=== PATIENT | female | born 1995 | race Caucasian/White ===

== ENCOUNTER 2017-06-29 23:03 | Emergency (ER) | payer OTHER ==
[~2017-06-29] VITALS: Ht 152.4 cm; Wt 72.7 kg
[2017-06-29 23:05] VITALS: BP 116/74; TEMP 98.2
[2017-06-30 00:04] LABS: INFLUENZA A NEGATIVE; INFLUENZA B NEGATIVE
[2017-06-30] MEDS ORDERED: TESSALON P100 MG/CAP PO (00:15)
[2017-06-30 00:36] VITALS: PULSE 72
== END 2017-06-30 00:37 | disposition home or self-care (01) ==
LOC: COL.ER 23:03
PROVIDERS: Physician Assistant
DX: B34.9 Viral infection, unspecified (principal); F32.9 Major depressive disorder, single episode, unspecified; F41.9 Anxiety disorder, unspecified

== ENCOUNTER 2017-11-07 17:28 | Emergency (ER) | payer OTHER ==
[~2017-11-07] VITALS: Ht 152.4 cm; Wt 88.2 kg
[~2017-11-07 17:28] MED LIST: TESSALON P100 MG/CAP PO
[2017-11-07 17:36] VITALS: BP 124/77; TEMP 100
[2017-11-07 17:52] LABS: COLLECTION METHOD CLEAN CATCH
[2017-11-07 18:04] LABS: MUCOUS Present /lpf; PH 5 (5-8); SQUAMOUS EPITHELIAL 0-2 /hpf; URINE APPEARANCE Clear; URINE BACTERIA None Seen /hpf; URINE BILIRUBIN Negative (NEGATIVE); URINE BLOOD Negative (NEGATIVE); URINE COLOR Yellow; URINE GLUCOSE Negative (NEGATIVE); URINE KETONE Negative (NEGATIVE); URINE LEUKOCYTE ESTERASE Negative (NEGATIVE); URINE NITRATE Negative (NEGATIVE); URINE PROTEIN(semi-quant) Negative (NEGATIVE); URINE RBC 0-2 /hpf; URINE UROBILINOGEN Negative (NEGATIVE)
[2017-11-07 20:10] VITALS: PULSE 75
== END 2017-11-07 20:10 | disposition home or self-care (01) ==
LOC: COL.ER 17:28
PROVIDERS: Nurse Practitioner
DX: O99.89 Other specified diseases and conditions complicating pregnancy, childbirth and the puerperium (principal); R10.2 Pelvic and perineal pain; Z3A.08 8 weeks gestation of pregnancy

== ENCOUNTER → 2017-12-28 | Outpatient (CLI) | payer OTHER | LOC: COL.LAB 16:59 | DX: O28.8 Other abnormal findings on antenatal screening of mother (principal); R76.8 Other specified abnormal immunological findings in serum ==

== ENCOUNTER 2018-03-20 18:49 | Emergency (ER) | payer OTHER ==
[2018-03-20 18:54] VITALS: BP 134/73; TEMP 98.5
[2018-03-20 19:52] LABS: BASO % 0.2 % (0.0-2.0); EOS # 0.3 (0.0-0.7); EOS % 2.5 % (0-4.0); GRAN # 9.1 (1.4-6.5); GRAN % 76.1 % (42.2-75.2); HEMOGLOBIN 11.7 g/dl (12.0-15.0); LYMPH # 1.9 (1.2-3.4); LYMPH % 15.6 % (20.0-51.0); MEAN CELL VOLUME 87 fl (80.0-95.0); MEAN CORPUSCULAR HEMOGLOBIN 31 pg (26.0-32.0); MEAN CORPUSCULAR HGB CONC 35 g/dl (33.0-37.0); MEAN PLATELET VOLUME 10.1 fl (7.4-10.4); MONO # 0.6 (0.1-0.6); PLATELET COUNT 217 K/mm3 (130-400); RED BLOOD COUNT 3.84 M/mm3 (4.10-5.30)
[2018-03-20 19:54] LABS: HEMATOCRIT 33.5 % (35.0-45.0)
[2018-03-20 20:04] LABS: ALBUMIN 3.6 gm/dL (3.5-5.0); BILIRUBIN,TOTAL 0.2 mg/dL (0.0-1.0); CALCIUM 9.6 mg/dL (8.4-10.2); CREATININE, serum 0.44 mg/dL (0.52-1.25); POTASSIUM 3.6 mmol/L (3.4-5.0); TOTAL PROTEIN 6.9 gm/dL (6.4-8.2)
[2018-03-20 21:29] LABS: COLLECTION METHOD CLEAN CATCH
[2018-03-20 21:39] LABS: AMORPHOUS CRYSTAL Present /uL; MUCOUS Present /lpf; PH 6 (5-8); URINE APPEARANCE Hazy; URINE BACTERIA Rare /hpf; URINE BILIRUBIN Negative (NEGATIVE); URINE BLOOD Negative (NEGATIVE); URINE COLOR Yellow; URINE GLUCOSE Negative (NEGATIVE); URINE KETONE Negative (NEGATIVE); URINE LEUKOCYTE ESTERASE Negative (NEGATIVE); URINE NITRATE Negative (NEGATIVE); URINE PROTEIN(semi-quant) Negative (NEGATIVE); URINE RBC 0-2 /hpf; URINE UROBILINOGEN Negative (NEGATIVE)
[2018-03-20] MEDS ORDERED: CEPHALEXIN500 M1 PO (22:37)
[2018-03-20 22:49] VITALS: PULSE 74
== END 2018-03-20 22:49 | disposition home or self-care (01) ==
LOC: COL.ER 18:49
PROVIDERS: Emergency Medicine
DX: O99.512 Diseases of the respiratory system complicating pregnancy, second trimester (principal); J06.9 Acute upper respiratory infection, unspecified; O23.92 Unspecified genitourinary tract infection in pregnancy, second trimester; R82.71 Bacteriuria; Z3A.25 25 weeks gestation of pregnancy

== ENCOUNTER 2018-06-19 15:58 | Outpatient (CLI) | payer OTHER ==
[~2018-06-19] VITALS: Ht 152.4 cm; Wt 98.2 kg
[~2018-06-19 15:58] MED LIST changes: +CEPHALEXIN500 M1 PO
--- NOTE | 2018-06-19 16:15 | NUR ---
Patient ambulatory to LR5, changed into gown, and FHR/TOCO monitors placed and explained. Patient states she has felt like she is peeing her pants a little bit and somewhat has continued, denies vagnial bleeding, and only feeling random normal contractions. SVE- closed/thick/high per A.Murrow and amniotest negative and no fluid present. 1635: called and notified. 1645: Patient off the monitors and given discharge instructions. 1655: Ambulatory off unit with spouse.
[2018-06-19] MEDS ORDERED: PRENATAL MVI (16:35)
[2018-06-19] MEDS ORDERED: ZYRTEC 10MG10 MG PO (16:36)
[2018-06-19 16:45] VITALS: BP 122/73; PULSE 76; TEMP 98.5
== END 2018-06-19 16:55 ==
LOC: LDRO 15:58
DX: Z34.93 Encounter for supervision of normal pregnancy, unspecified, third trimester (principal); Z3A.37 37 weeks gestation of pregnancy

== ENCOUNTER 2018-07-02 14:34 | Inpatient (IN) | payer OTHER ==
[2018-07-02] VITALS (8 sets, daily range): BP systolic 120–150; BP diastolic 66–80; PULSE 73–92; TEMP 98.3
[~2018-07-02] VITALS: Ht 154.9 cm; Wt 99.5 kg
[~2018-07-02 14:34] MED LIST changes: +PRENATAL MVI; +ZYRTEC 10MG10 MG PO
--- NOTE | 2018-07-02 19:00 | NUR ---
Pt arrived on unit for scheduled induction escorted by her . Pt denies any vaginal leaking of fluid or bleeding, reports normal movement and reports occasional contractions but no pain or discomfort with them. EFM and toco monitors started. Vital signs WNL. Consents signed. IV started and labs obtained. Plan of care for induction reviewed with pt and . Both verbalized an understanding, agree with the plan and state no questions or concerns at this time.
[2018-07-02 20:33] LABS: BASO % 0.3 % (0.0-2.0); EOS # 0.1 (0.0-0.7); EOS % 1.1 % (0-4.0); GRAN # 8.7 (1.4-6.5); GRAN % 74.3 % (42.2-75.2); LYMPH # 2.1 (1.2-3.4); LYMPH % 17.8 % (20.0-51.0); MEAN CELL VOLUME 87 fl (80.0-100.0); MEAN CORPUSCULAR HEMOGLOBIN 30 pg (27.0-31.0); MEAN CORPUSCULAR HGB CONC 34 g/dl (33.0-37.0); MEAN PLATELET VOLUME 11.3 fl (7.4-10.4); MONO # 0.6 (0.1-0.6); MONO % 5.4 % (1.7-9.3); PLATELET COUNT 236 K/mm3 (130-400); RED BLOOD COUNT 4.05 M/mm3 (4.10-5.30); REDCELL DISTRIBUTION WIDTH-CV 13.1 % (11.5-14.5)
[2018-07-02 20:34] LABS: HEMATOCRIT 35.3 % (37.0-47.0)
--- NOTE | 2018-07-02 21:40 | NUR ---
SVE by this RN /-3. Contractions tracing every 3-5 minutes via toco. Pt reports feeling a couple of them but denies pain and contractions palpate mild. Cervidil placed per order. See EMAR for details. Plan of care reviewed with pt and at the bedside. Call light within reach.
--- NOTE | 2018-07-02 23:40 | NUR ---
Pt off EFM and toco per order. Plan of care reviewed. Will continue to monitor.
[2018-07-03] VITALS (66 sets, daily range): BP systolic 91–139; BP diastolic 40–91; PULSE 61–110; TEMP 98–99.6
--- NOTE | 2018-07-03 06:00 | NUR ---
Cervidil removed at [address] Chahal's order. SVE by this RN /. Plan of care reviewed with pt.
--- NOTE | 2018-07-03 07:00 | NUR ---
0620- RN at bedside for introductions. Pt resting with lights off. Plan of care explained, going to start Pitocin around 0700. Pt may take a quick shower and have a light breakfast if desires. Pt wants to do both. 0630- Pt up to shower. [place] prepared for Pt by this RN. 0648- Pt into bed, EFM and TOCO on and tracing. Pt states she feels tighteness with UCs but denies pain. movement heard by this RN on monitor.
--- NOTE | 2018-07-03 07:30 | NUR ---
0703- Pt assisted to LL. 0705- IVF bolus initated. VSS. 0728- FHR reactive, Pitocin started per protocol, Pt questions answered.
--- NOTE | 2018-07-03 09:15 | NUR ---
0905- MD on unit. Updated on current status. 0910- and this RN to bedside. SVE by MD, -/3. AROM, clear fluid noted, no odor. Precautions given, Pt verbalizes understanding. MD informs Pt of Plan of Care, Pt deneis questions at this time.
--- NOTE | 2018-07-03 12:33 | NUR ---
1222- FREDDY Mendoza at bedside for epidural. Pt asssited to sitting on side of bed. 1226- O2 sat monitor on and tracing. FHR difficult to monitor due to maternal position. 1233- Single shot by [employer] PROFESSIONAL, see anesthesia record. 1235- O2 sat monitor off. Pt assisted to semi-fowlers with WR. 1238- EFM and TOCO adjusted and tracing well. Pt states she feels cramping on left side. Pt assisted to WL. Tolerated well.
--- NOTE | 2018-07-03 13:50 | NUR ---
1350- Pt repositioned self to LL, TOCO not tracing UCs well, adjuested.
--- NOTE | 2018-07-03 15:45 | NUR ---
1537- Pt assisted to high fowlers position due to inability to monitor UCs well. EFM and TOCO adjusted. Pt tolerated well.
--- NOTE | 2018-07-03 16:15 | NUR ---
1607- Dr Chahal at bedside, SVE /-2. Discussed plan of care, questions answered. VO given to increase Pitocin above 30mu if needed with max of 40mu.
--- NOTE | 2018-07-03 17:00 | NUR ---
1630- FHR variabls noted after each UC. Pt assisted to WL. 1650- FHR late decels noted, return to baseline prior to end of UC, moderate variability noted throughout. Pt repositioned to RL, IVF bolus. 165- SVE by this RN, /-2. FHR Variables noted with moderate variability. 1703- Pt repositioned to LL. Pitocin off. 1715- Dr Chahal called and updated. See physician notification.
--- NOTE | 2018-07-03 18:00 | NUR ---
1750- Strip reviewed by charge nurse, KANWAL Silva at nurses station. Dr Tamez at nurses station, reveiws strip and gives go ahead on restarting Pitocin per Dr Chahal order.
--- NOTE | 2018-07-03 18:32 | NUR ---
at bedside. SVE /-3. Discussion on explained to pt and per provider. Will recheck pt in one hour and go from there. Pt repositioned to right lateral position. Plan of care explained to pt and . Questions answered.
--- NOTE | 2018-07-03 19:20 | NUR ---
at bedside. SVE unchanged. 1920: Decision for at this time. Education on procedure given to pt and per provider. Questions answered. Temp 99.6 orally. at bedside and notified. Pitocin off and abdomen prepped. 1924: Pt sitting up in bed. FHR tracing maternal pulse. RN at bedside and adjusting monitors. 1929: Pt states she feels like she is going to throw up. Zofran 4mg administered and Reji ME[employer] ASSOCIATE notified. 1933: Pt off monitors and wheeled back to OR via bed. at pts bedside.
[2018-07-04] VITALS: BP 114/59; PULSE 95; TEMP 99.1
--- NOTE | 2018-07-04 00:20 | NUR ---
Pt wanting to observe infants first bath. Pt able to hold legs up bilateratlly for 5 seconds. Fundus firm, midline and bleeding minimal. Pericare provided and abdomen binder applied. Pt assisted to edge of bed. Epidural catheter removed without difficulty. No signs of inflammation or infection noted.Pt denies dizziness or lightheadedness. Pt assisted to wheelchair, two person assist and wheeled into nursery.
[2018-07-04 01:05] VITALS: BP 113/55; PULSE 98; TEMP 99.1
[2018-07-04 04:30] VITALS: BP 106/57; PULSE 84; TEMP 98.3
[2018-07-04 08:00] VITALS: BP 106/45; PULSE 95; TEMP 99
--- NOTE | 2018-07-04 08:56 | NUR ---
Initial visit; Parents thanked Brass Plater for offering congratulations and God's blessings for the of their daughter and for thanking them for choosing [facility].
[2018-07-04] MEDS ORDERED: IBU600 MG PO (08:57)
[2018-07-04] MEDS ORDERED: PERCOCET 325 MG1 TA2 PO (08:58)
[2018-07-04 16:20] VITALS: BP 112/58; PULSE 99; TEMP 98.3
[2018-07-04 20:10] VITALS: BP 118/67; PULSE 99; TEMP 98.2
[2018-07-05 08:26] VITALS: BP 118/77; PULSE 88; TEMP 97.8
== END 2018-07-05 15:55 | disposition home or self-care (01) | DRG 788 ==
LOC: LDR 14:34 → OB 18:55 → LDR 18:55 → OB 07-03 22:48
PROVIDERS: ADMIT Obstetrics & Gynecology
PROC: 3E033VJ Introduction of Other Hormone into Peripheral Vein, Percutaneous Approach (ICD-10-PCS; 2018-07-02)
PROC: 3E0P7VZ Introduction of Hormone into Female Reproductive, Via Natural or Artificial Opening (ICD-10-PCS; 2018-07-02)
PROC: 10907ZC Drainage of Amniotic Fluid, Therapeutic from Products of Conception, Via Natural or Artificial Opening (ICD-10-PCS; 2018-07-02)
PROC: 10D00Z1 Extraction of Products of Conception, Low, Open Approach (ICD-10-PCS; principal; 2018-07-03)
DX: O13.4 Gestational [pregnancy-induced] hypertension without significant proteinuria, complicating childbirth (principal); Z3A.38 38 weeks gestation of pregnancy; Z37.0 Single live birth; O62.1 Secondary uterine inertia; O99.344 Other mental disorders complicating childbirth; F41.8 Other specified anxiety disorders; O76 Abnormality in fetal heart rate and rhythm complicating labor and delivery; O99.214 Obesity complicating childbirth
CPT/HCPCS: J0690; J1885; J2175; J2370; J2405; J2590; J2795; J7120

== ENCOUNTER → 2018-09-13 | Outpatient (CLI) | payer OTHER ==
[~2018-09-13] MED LIST changes: +IBU600 MG PO; +PERCOCET 325 MG1 TA2 PO
== END ==
LOC: ZCOL.LAB 16:22
DX: J02.9 Acute pharyngitis, unspecified (principal)

== ENCOUNTER 2019-12-06 02:12 | Emergency (ER) | payer OTHER ==
[~2019-12-06] VITALS: Ht 152.4 cm; Wt 83.6 kg
[2019-12-06 02:17] VITALS: BP 109/64; TEMP 97.7
[2019-12-06] MEDS ORDERED: ZOFRAN ODT4 MG SL (03:53)
[2019-12-06 04:00] LABS: COLLECTION METHOD CLEAN CATCH
[2019-12-06 04:15] LABS: MUCOUS Present /lpf; PH 5 (5-8); URINE APPEARANCE Hazy; URINE BACTERIA Rare /hpf; URINE BILIRUBIN Negative (NEGATIVE); URINE BLOOD 1+ (NEGATIVE); URINE COLOR Yellow; URINE GLUCOSE Negative (NEGATIVE); URINE KETONE 1+ (NEGATIVE); URINE LEUKOCYTE ESTERASE Negative (NEGATIVE); URINE NITRATE Negative (NEGATIVE); URINE PROTEIN(semi-quant) 1+ (NEGATIVE); URINE UROBILINOGEN Negative (NEGATIVE)
[2019-12-06 04:30] VITALS: PULSE 76
== END 2019-12-06 04:30 | disposition home or self-care (01) ==
LOC: COL.ER 02:12
PROVIDERS: Emergency Medicine
DX: O26.891 Other specified pregnancy related conditions, first trimester (principal); R10.2 Pelvic and perineal pain; Z3A.12 12 weeks gestation of pregnancy

== ENCOUNTER 2020-04-07 22:56 | Outpatient (CLI) | payer OTHER ==
[~2020-04-07] VITALS: Ht 152.4 cm; Wt 86.8 kg
[~2020-04-07 22:56] MED LIST changes: +ZOFRAN ODT4 MG SL
[2020-04-07 23:07] VITALS: BP 112/60; PULSE 71; TEMP 98.7
--- NOTE | 2020-04-07 23:40 | NUR ---
2315 G3L1 at 30 weeks gestation to LDR2 with c/o decreased movement. Patient changed into gown and wedged to left side in bed. EFMs explained and applied. FHR 135 bpm and reactive. No CTX per toco or patient reports. VSS. Audible movement heard on EFM by this nurse and patient and patient states "there he goes" as baby moves. Patient expresses reassurance. Plan of care reviewed.
--- NOTE | 2020-04-07 23:45 | NUR ---
Discharge instructions reviewed. Patient discharged home.
== END 2020-04-07 23:50 | disposition home or self-care (01) ==
LOC: LDRO 22:56
DX: O36.8130 Decreased fetal movements, third trimester, not applicable or unspecified (principal); Z3A.30 30 weeks gestation of pregnancy

== ENCOUNTER 2020-06-01 17:55 | Outpatient (CLI) | payer OTHER ==
[~2020-06-01] VITALS: Ht 152.4 cm; Wt 92.7 kg
--- NOTE | 2020-06-01 18:20 | NUR ---
G3L1 at 37 weeks and 6 days arrives to unit ambulatory with complaint of migraine with nausea/vomiting, blurry vision, and tingling in hand. Pt reports she had PIH with her last and had high blood pressure and swelling. Does not report swelling today. Pt states she took tylenol and zofran prior to coming to the hospital. Hasn't had much appetite today. Reports good movement, denies vaginal bleeding, loss of fluid, or contractions. Clean gown on. Oriented to room, bed in low and locked position, call light within reach. US and toco explained and applied. Plan of care reviewed with patient. Admission assessment started. Vital signs obtained and within normal limits.
[2020-06-01 18:30] VITALS: BP 120/77; PULSE 74; TEMP 98.6
--- NOTE | 2020-06-01 18:30 | NUR ---
Pt appears to be magui every 2-3 minutes on monitor , pt unaware of contractions. SVE closed/thick/high
[2020-06-01 18:50] VITALS: BP 122/74; PULSE 69
--- NOTE | 2020-06-01 18:50 | NUR ---
Category 1 FHR tracing obtained. Vital signs remain within normal limits. Pt appears to be in no acute distress. Telephone orders from Dr. Thorpe ok to discharge home at this time, pt agreeable to discharge plan. Monitors off. Encouraged patient to stay well hydrated and rest. Has visit in the office tomorrow. 1904 discharge instructions reviewed, pt verbalized understanding. Pt walked out by this RN.
[2020-06-01] MEDS ORDERED: TYLENOL 500MG500 MG PO (18:55)
== END 2020-06-01 19:05 | disposition home or self-care (01) ==
LOC: LDRO 17:55
DX: O26.891 Other specified pregnancy related conditions, first trimester (principal); H53.8 Other visual disturbances; R11.2 Nausea with vomiting, unspecified; R20.0 Anesthesia of skin; R10.11 Right upper quadrant pain; Z3A.37 37 weeks gestation of pregnancy

== ENCOUNTER → 2020-06-04 | Outpatient (CLI) | payer OTHER ==
[~2020-06-04] MED LIST changes: +TYLENOL 500MG500 MG PO
== END ==
LOC: ZCOL.LAB 08:00
DX: Z20.828 Contact with and (suspected) exposure to other viral communicable diseases (principal)

== ENCOUNTER 2020-06-09 06:57 | Inpatient (IN) | payer OTHER ==
[~2020-06-09] VITALS: Ht 152.5 cm; Wt 93.6 kg
[2020-06-09] VITALS (21 sets, daily range): BP systolic 100–125; BP diastolic 43–87; PULSE 60–97; TEMP 97.7–98.9
--- NOTE | 2020-06-09 07:03 | NUR ---
0703-Patient and spouse ambulatory to213 for scheduled repeat c/s. Assisted on to EFM. Assessment complete. IV to right hand, blood collected and sent to lab per orders. LR infusing see EMAR. Mons clipped per protocol and abdomened washed.
[2020-06-09 07:52] LABS: BASO % 0.2 % (0.0-2.0); EOS # 0.1 (0.0-0.7); GRAN # 8.6 (1.4-6.5); GRAN % 68.4 % (42.2-75.2); HEMOGLOBIN 12.1 g/dl (12.5-16.0); LYMPH # 2.9 (1.2-3.4); LYMPH % 23.6 % (20.0-51.0); MEAN CELL VOLUME 88 fl (80.0-100.0); MEAN CORPUSCULAR HEMOGLOBIN 30 pg (27.0-31.0); MEAN CORPUSCULAR HGB CONC 35 g/dl (33.0-37.0); MEAN PLATELET VOLUME 10.5 fl (7.4-10.4); MONO # 0.7 (0.1-0.6); MONO % 5.8 % (1.7-9.3); PLATELET COUNT 211 K/mm3 (130-400); RED BLOOD COUNT 3.99 M/mm3 (4.10-5.30); REDCELL DISTRIBUTION WIDTH-CV 13.2 % (11.5-14.5)
[2020-06-09 07:55] LABS: HEMATOCRIT 34.9 % (37.0-47.0)
--- NOTE | 2020-06-09 09:55 | NUR ---
0955-Patient to PACU via bed. A&Ox4. Recieved report from FREDDY Mendoza. VSS see flow record. Perry to DD, clear yellow urine. IVF to R hand. Denies pain. Fundal massage firm. [facility] D[facility] C/D/I. Updated on plan of care and safety. Roles in to see patient. Infant brought in with father and nursery RN.
[2020-06-10 01:30] VITALS: BP 110/63; PULSE 78; TEMP 97.9
[2020-06-10 06:05] LABS: HEMATOCRIT 32.3 % (37.0-47.0); HEMOGLOBIN 10.9 g/dl (12.5-16.0)
--- NOTE | 2020-06-10 07:00 | NUR ---
REPORT RECEIVED FROM OFF GOING RN, ASHLEE Steele CARE TAKEN OVER BY THIS RN.
[2020-06-10 07:29] VITALS: BP 112/68; PULSE 88; TEMP 98.3
[2020-06-10] MEDS ORDERED: IBU600 MG PO (08:58)
[2020-06-10] MEDS ORDERED: PERCOCET 325 MG1 TA2 PO (08:59)
--- NOTE | 2020-06-10 09:43 | NUR ---
Initial visit; Parents thanked Degree Clerk for offering congratulations and God's blessings for their son. Degree Clerk thanked family for choosing [facility].
== END 2020-06-10 14:00 | disposition home or self-care (01) | DRG 787 ==
LOC: OB 06:57
PROVIDERS: ADMIT Obstetrics & Gynecology
PROC: 10D00Z1 Extraction of Products of Conception, Low, Open Approach (ICD-10-PCS; principal; 2020-06-09)
DX: O34.211 Maternal care for low transverse scar from previous cesarean delivery (principal); O99.354 Diseases of the nervous system complicating childbirth; Z37.0 Single live birth; O99.344 Other mental disorders complicating childbirth; F32.9 Major depressive disorder, single episode, unspecified; F41.9 Anxiety disorder, unspecified; G43.909 Migraine, unspecified, not intractable, without status migrainosus; Z3A.39 39 weeks gestation of pregnancy
CPT/HCPCS: J0690; J2175; J2370; J2405; J2590; J7120

== ENCOUNTER 2020-12-10 10:59 | Emergency (ER) | payer OTHER ==
[~2020-12-10] VITALS: Ht 152.4 cm; Wt 79.5 kg
[2020-12-10 11:20] VITALS: TEMP 98.9
[2020-12-10 12:41] VITALS: BP 118/65; PULSE 91
== END 2020-12-10 12:41 | disposition home or self-care (01) ==
LOC: COL.ER 10:59
DX: B34.9 Viral infection, unspecified (principal); Z20.822 Contact with and (suspected) exposure to COVID-19

== ENCOUNTER 2021-01-24 20:18 | Emergency (ER) | payer OTHER ==
[~2021-01-24] VITALS: Ht 152.4 cm; Wt 76.8 kg
[2021-01-24 20:22] VITALS: TEMP 99.2
[2021-01-24] MEDS ORDERED: CEPHALEXIN500 M1 PO (21:25)
[2021-01-24 21:46] VITALS: BP 128/70; PULSE 73
== END 2021-01-24 21:48 | disposition home or self-care (01) ==
LOC: COL.ER 20:18
DX: N61.0 Mastitis without abscess (principal); N60.42 Mammary duct ectasia of left breast

== ENCOUNTER 2021-06-27 10:31 | Observation (INO) | payer OTHER ==
[2021-06-27] VITALS (8 sets, daily range): BP systolic 99–119; BP diastolic 49–73; PULSE 81–93; TEMP 98
[~2021-06-27] VITALS: Ht 154.9 cm; Wt 77.0 kg
[2021-06-27 11:52] LABS: BASO % 0.2 % (0.0-2.0); EOS # 0.1 K/mm3 (0.0-0.7); EOS % 0.7 % (0.0-4.0); GRAN # 8.8 K/mm3 (1.4-6.5); GRAN % 86.6 % (42.2-75.2); HEMATOCRIT 39.2 % (37.0-47.0); HEMOGLOBIN 13.4 g/dl (12.5-16.0); LYMPH # 0.6 K/mm3 (1.2-3.4); LYMPH % 6.1 % (20.0-51.0); MEAN CELL VOLUME 88 fl (80.0-100.0); MEAN CORPUSCULAR HEMOGLOBIN 30 pg (27-31); MEAN CORPUSCULAR HGB CONC 34 g/dl (33.0-37.0); MEAN PLATELET VOLUME 9.5 fl (7.4-10.4); MONO # 0.6 K/mm3 (0.1-0.6); PLATELET COUNT 248 K/mm3 (130-400); RED BLOOD COUNT 4.46 M/mm3 (4.10-5.30); REDCELL DISTRIBUTION WIDTH-CV 11.9 % (11.5-14.5)
[2021-06-27 12:13] LABS: ALBUMIN 4.1 gm/dL (3.5-5.0); BILIRUBIN,TOTAL 0.9 mg/dL (0.2-1.2); CALCIUM 8.7 mg/dL (8.4-10.2); CREATININE, serum 0.65 mg/dL (0.57-1.11); POTASSIUM 3.8 mmol/L (3.5-4.5); TOTAL PROTEIN 7.6 gm/dL (6.2-8.1)
--- NOTE | 2021-06-27 16:30 | NUR ---
Patient here from surgical. Patient stable and VSS. Two bandaids on stomach-clean/dry/intact. Report received from Jennifer SCHOFIELD. Patient resting and has no needs at this time. Plan of care discussed.
[2021-06-28 01:00] VITALS: BP 105/48; PULSE 69; TEMP 98.8
[2021-06-28 05:15] VITALS: BP 99/50; PULSE 67; TEMP 97.9
[2021-06-28 08:27] VITALS: BP 114/68; PULSE 76; TEMP 98.1
[2021-06-28] MEDS ORDERED: FLAGYL500 MG PO (11:16)
[2021-06-28] MEDS ORDERED: AMOXICILLIN 8751 TAB PO (11:16)
[2021-06-28 11:21] LABS: BASO % 0.1 % (0.0-2.0); GRAN # 11.6 K/mm3 (1.4-6.5); GRAN % 86.5 % (42.2-75.2); HEMOGLOBIN 11.8 g/dl (12.5-16.0); LYMPH # 0.9 K/mm3 (1.2-3.4); LYMPH % 6.5 % (20.0-51.0); MEAN CELL VOLUME 86 fl (80.0-100.0); MEAN CORPUSCULAR HEMOGLOBIN 30 pg (27-31); MEAN CORPUSCULAR HGB CONC 34 g/dl (33.0-37.0); MEAN PLATELET VOLUME 9.3 fl (7.4-10.4); MONO # 0.9 K/mm3 (0.1-0.6); MONO % 6.4 % (1.7-9.3); PLATELET COUNT 248 K/mm3 (130-400); REDCELL DISTRIBUTION WIDTH-CV 11.9 % (11.5-14.5)
[2021-06-28 11:22] LABS: HEMATOCRIT 34.3 % (37.0-47.0)
[2021-06-28 11:25] VITALS: TEMP 98.4
[2021-06-28 11:38] LABS: ALBUMIN 3.4 gm/dL (3.5-5.0); BILIRUBIN,TOTAL 0.4 mg/dL (0.2-1.2); CALCIUM 8.4 mg/dL (8.4-10.2); CREATININE, serum 0.63 mg/dL (0.57-1.11); POTASSIUM 3.7 mmol/L (3.5-4.5); TOTAL PROTEIN 6.5 gm/dL (6.2-8.1)
[2021-06-28 12:19] VITALS: BP 112/64; PULSE 76; TEMP 98.2
--- NOTE | 2021-06-28 13:02 | NUR ---
1240 iv infiltrated, Dr Cruz called and updated orders to dismiss to home to take po antibiotic
--- NOTE | 2021-06-28 13:54 | NUR ---
1345 AMB TO POV WITH STAFF. VERBAL UNDERSTANDING NOTED.
== END 2021-06-28 13:50 | disposition home or self-care (01) ==
LOC: COL.ER 10:31 → OB 16:30 → LDRO 16:30 → OB 17:30
PROVIDERS: Emergency Medicine; ADMIT Obstetrics & Gynecology
DX: O03.0 Genital tract and pelvic infection following incomplete spontaneous abortion (principal); N71.9 Inflammatory disease of uterus, unspecified; J30.2 Other seasonal allergic rhinitis; Z20.822 Contact with and (suspected) exposure to COVID-19; Z79.899 Other long term (current) drug therapy
CPT/HCPCS: G0378; J0330; J0692; J1100; J1885; J2250; J2405; J2704; J3010; J7030; J7120